=== PATIENT | male | born 1995 | race Caucasian/White ===

== ENCOUNTER 2022-05-08 09:06 | Emergency (ER) | payer OTHER, SELFPAY ==
[2022-05-08 09:11] VITALS: BP 139/88; PULSE 73; RESP 18; TEMP 36.2; O2SAT 98; BMI 23.7
--- NOTE | 2022-05-08 09:28 | ED.GENADULT ---
HPI - General Adult General Time Seen by Provider: :29 Date Seen: 05/08/22 Chief complaint: Skin/Abscess/Foreign Body Stated complaint: Lower body hives/blisters--suspected monkey pox Time Seen by Provider: 05/08/22 09:08 Source: patient and RN notes reviewed Mode of arrival: ambulatory Limitations: no limitations History of Present Illness HPI narrative: patient is a 26-year-old male coming in with a rash on his lower extremities. It felt like it started to spread to his shoulder today which concerned him that it could be monkey pox. Patient is heterosexual, no homosexual exposures. He is concerned however as he was trying on jeans Thursday and Thursday and different clothing for engagement pictures. He wore the jeans without washing them on Thursday. They were walking through grass and later that day when he went to change out of the jeans into shorts he noted the rash. It is on his legs and is itchy. He has been doing saline baths basically just [id number] medicines. Last week on he was white water rafting in [place] in camp. He traveled Thursday to [place] via airplane. He stayed in [place] through Thursday. Thursday and Thursday he was trying on clothing for his engagement pictures. Thursday and they were walking through grass and in park area doing pictures. When he got home later that day and change out of the pants in discharge he noticed a red rash. It is itchy. He thought that it was spreading to his shoulder today. He has had chiggers before and initially thought it was probably just that but with the possible spreading to his shoulder he became concerned. He has a mild headache today but is otherwise been well, no fevers or ill feeling. Patient states that he has had chickenpox before. Patient has not been sexually active with his fiancee for a few months. complaint: Rash Onset (ago): day(s) Related Data Home Medications Medication Instructions Recorded Confirmed No Known Home Medications 05/08/22 05/08/22 Allergies Allergy/AdvReac Type Severity Reaction Status Date / Time No Known Drug Allergies Allergy Verified 05/08/22 09:11 Review of Systems Status of ROS: Reports: 6 or more systems reviewed and unremarkable except as noted in History and below Exam Const: Vital Signs, click to edit/add: Vital Signs - 24 hr 05/08/22 09:11 Temperature 97.2 F L Pulse Rate [Left P ulse Oximeter] 73 Respiratory Rate 18 Blood Pressure [Le ft Upper Arm] 139/88 Pulse Oximetry 98 Oxygen Delivery Me thod Room Air Documenting provider has reviewed patient's vital signs: yes Common normals: no apparent distress, oriented x3, no limitations, healthy appearing, alert and well nourished General appearance: cooperative, comfortable and well kempt Nutritional appearance: thin HENMT: Common normals: normocephalic, head/scalp atraumatic and hearing grossly normal bilaterally Head and scalp: normocephalic and atraumatic Eye: Common normals: PERRL, EOMs intact bilaterally, conjunctivae normal and no scleral icterus Conjunctiva: conjunctiva(e) normal Pupil: PERRL Neck & C-Spine: Common normals: full ROM, no lymphadenopathy, supple, no meningeal signs, no JVD and thyroid normal Thyroid: thyroid normal Resp: Common normals: normal respiratory effort, no retractions and no use of accessory muscles Cardio: Common normals: no JVD, regular rate, regular rhythm, S1 normal heart sound, S2 normal heart sound, no gallops, no clicks and no murmurs Rate: regular rate Rhythm: regular rhythm Heart sounds: S1 normal and S2 normal GI: Common normals: Normal to inspection, nondistended, normoactive bowel sounds present, soft to palpation, non-tender, no hepatosplenomegaly and no masses Palpation: soft and no hepatosplenomegaly Extremity: Common normals: normal to inspection, full ROM, normal capillary refill, no joint enlargement, no calf tenderness and no pedal edema Neuro: Common normals: oriented x3 Sensorium/orientation: alert Meningeal signs: no meningeal signs Psych: Appearance: well kempt Skin: Narrative: Patient has erythematous based lesions better discrete but scattered throughout his lower extremities. There are none below the sock line on the feet. The started the ankles and go up to his legs. I see none on the buttocks none on the abdomen. The area on his back he is not sure which side of his left her right shoulder posterior area. IC about 3 small pink punctate areas that are slightly raised almost like a follicle but they are not erythematous, no vesicular top, no erythematous base like his other lesions. It is difficult to say if this rash is spreading into his back or if this is just a couple follicles on his back that might be irritated. These lesions on his back are not definitively the same as his legs. Scattered on his legs he is erythematous based lesions with a central potentially raised area on some of that have a tiny clear vesicle. Some of the lesions have almost a little punctate surrounding [place] at of petechial change. Note they are only a few of those. Mostly block like a nondescript probable parasitic possibly chigger like reaction. Course Course Hospital Course: Discussed with patient possibility of rashes with COVID B and with his recent travel he did want to be tested for COVID. Did stated that I would talk to somebody in the department of Health or [facility] if need be regarding his rash. I a am not aware of probable spread from contact from clothing causing transmission. We will call [address] with the recommendations are. Reevaluation(s) Reevaluation #1: Collected 1 specimen per [facility] guidelines from his right inner thigh and then 1 specimen from behind his left lateral malleolus. Note this ankle lesion truly had a clear domed larger vesicle. Time: 10:30 Consultations Consultation #1: Spoke with Christopher from [facility]. Monkey proxy is starting to spread through the non sexually active and not on med and having sex with men population. They do worry about clothing transmission although they think the probability is low. We will test this patient and send the swabs via [employer] to the public health lab here in [place]. Christopher recommends this patient isolate and stay home until we have the result back. He recommends separate bathroom and bedroom and attempting to keep the lesions covered. If this should come back positive the [place] department of [facility] will contact him an IS. If the result is negative [facility] will rely on us to notify the patient that he can come out of isolation. Vital Signs Vital signs: Initial Vital Signs Temperature 97.2 F L 05/08/22 09:11 Temperature Source Temporal Artery Scan 05/08/22 09:11 Pulse Rate 73 05/08/22 09:11 Respiratory Rate 18 05/08/22 09:11 Blood Pressure 139/88 05/08/22 09:11 Blood Pressure Mean 105 05/08/22 09:11 Pulse Oximetry 98 05/08/22 09:11 Oxygen Delivery Method 05/08/22 09:11 Vital Signs Temperature 97.2 F L 05/08/22 09:11 Pulse Rate 73 05/08/22 09:11 Respiratory Rate 18 05/08/22 09:11 Blood Pressure 139/88 05/08/22 09:11 Pulse Oximetry 98 05/08/22 09:11 Oxygen Delivery Method 05/08/22 09:11 Temperature 97.2 F L 05/08/22 09:11 Pulse Rate 73 05/08/22 09:11 Respiratory Rate 18 05/08/22 09:11 Blood Pressure 139/88 05/08/22 09:11 Pulse Oximetry 98 05/08/22 09:11 Oxygen Delivery Method 05/08/22 09:11 Critical Care Time Critical Care Time Critical Care Time: No Discharge Plan Discharge Clinical Impression: Rash and nonspecific skin eruption Patient Disposition: Home, Self-Care Condition: Stable Instructions: Acute Rash (ED) Additional Instructions: Can use ice packs or cool compresses if you have a specific itchy area. Cool or lukewarm showering can help minimize itching. Take daily Claritin or Zyrtec to help minimize itching. Can supplement with Benadryl per package directions as needed for extra control of the itching. [place] department of [facility] will contact you if the monkey pox test is positive. Otherwise we will need to contact you with a negative result. You are to isolate until the test result is back. It is recommended that you try to have a separate bathroom, a separate bedroom and attempt to keep lesions covered by clothing and tell we know the results of the testing from the [place] department of [facility]. We will call you with the results of the COVID testing done today. Activity Level: Activity as Tolerated Discharge Diet: Regular Prescriptions: No Action No Known Home Medications Follow Up/Referrals: Teresa Marie PA-C [Primary Care Provider] - Stand Alone Forms: [employer] Info Instructions
--- NOTE | 2022-05-08 11:08 | ED.NURSE ---
pt instructed per MD that [facility] will contact pt with positive result and that the ED will contact pt if the monkey pox test in negative.
[2022-05-08 15:48] LABS: SARS PCR* Negative SARS-CoV-2 (Negative)
== END 2022-05-08 11:17 | disposition home or self-care (01) ==
PROVIDERS: Emergency Provider Family Medicine
DX: R21 Rash and other nonspecific skin eruption (principal)
CPT/HCPCS: 36415; 87635; 99283